=== PATIENT | male | born 1950 | race Caucasian/White ===

== ENCOUNTER 2022-04-24 09:28 | Emergency (ER) | payer MEDICARE, OTHER, SELFPAY ==
[2022-04-24] VITALS (7 sets, daily range): BP systolic 114–124; BP diastolic 69–79; PULSE 54–67; RESP 13–18; TEMP 36.5; O2SAT 97–100
--- NOTE | ~2022-04-24 | XR_ITS ---
EXAMINATION: XR chest 2V DATE: 04/24/2022 10:02 INDICATION: Presyncope. TECHNIQUE: Frontal and lateral views of the chest were obtained. COMPARISON: Chest 2 views 05/15/2016, chest CT 01/18/2018 FINDINGS: The chest demonstrates clear lungs without pneumonia, pleural effusion, or pneumothorax. Th e heart size is normal. IMPRESSION: 1. No acute cardiopulmonary disease. Reviewed, dictated and finalized at location B.
--- NOTE | ~2022-04-24 | CT_ITS ---
EXAMINATION: CTA chest PE abdomen pel DATE: 04/24/2022 12:34 INDICATION: Pleuritic chest pain. Presyncope. Diaphoresis. Decreased responsiveness. TECHNIQUE: Computed tomography angiography (CTA) of the chest was performed with 100 mL Omnipaque-350 intravenous contrast timed to evaluate the pulmonary arteries. Coronal maximum intensity projection 3D-reconstructions were created by the technologist. Computed tomography (CT) of the abdomen and pelv is was performed with intravenous contrast. Automated exposure control and iterative reconstruction t echnique were employed. The dose-length product was 405.53 mGy-cm. COMPARISON: Chest CT 01/18/2018 FINDINGS: CTA chest: There is mild atelectasis bilaterally. No pleural effusion. The heart size is normal. Ther e are coronary artery calcifications. No pericardial effusion. There is no pulmonary embolus. The rig ht measures 3.7 cm of the sinuses of Valsalva, 2.7 cm at the sinotubular junction, 4.0 cm in the mid ascending aorta, 3.0 cm at the aortic isthmus, and 4.0 cm in proximal descending aorta. There is mild aortic atherosclerosis. There is mild thoracic spondylosis. CT abdomen and pelvis: There is an 8 mm cyst in the liver. The gallbladder, spleen, pancreas, adrenal glands, and kidneys are normal. The prostate is mildly enlarged. There are no dilated loops of bowel . There is diverticulosis of the colon without evidence of diverticulitis. There is a large volume of stool in the colon. The appendix is not visualized. There are no pathologically enlarged lymph nodes . There is no free intraperitoneal fluid. There is mild lumbar spondylosis. IMPRESSION: 1. No pulmonary embolus. 2. Ectasia of thoracic aorta measuring 4.0 cm. Reviewed, dictated and finalized at location B.
--- NOTE | 2022-04-24 09:40 | ECG_ITS ---
Measurements Intervals [place] Rate: 56 P: 51 HI: 155 QRS: 35 QRSD: 101 T: 60 QT: 405 QTc: 393 Interpretive Statements SINUS BRADYCARDIA POSSIBLE RIGHT VENTRICULAR CONDUCTION DELAY [RSR (QR) IN V1/V2] SEPTAL MYOCARDIAL INFARCTION , OF INDETERMINATE AGE [40+ ms Q WAVE IN V1/V2] NO PREVIOUS ECG AVAILABLE FOR COMPARISON Electronically Signed On 04-24-2022 13:58:09 CDT by Johnny Chew M.D.
[2022-04-24 10:20] LABS: Basophils Absolute Auto 0.1 K/mm3 (0.0-0.1); Basophils Percent Auto 0.6 % (0.2-1.2); Eosinophils Absolute Auto 0.1 K/mm3 (0-0.3); Hematocrit 38.3 % (42.0-52.0); Hemoglobin 12.8 g/dL (14.0-18.0); Immature Granulocyte Absolute 0.05 K/mm3 (0.00-0.031); Immature Granulocyte Percent A 0.5 % (0-0.5); Lymphocytes Percent Auto 17.5 % (18.3-44.2); Mean Corpuscular HGB Conc 33.4 g/dl (32-36); Mean Corpuscular Hemoglobin 31.1 pg (26-34); Mean Corpuscular Volume 93.2 fl (80-100); Mean Platelet Volume 9.4 fl (7.4-10.4); Monocytes Absolute Auto 0.9 K/mm3 (0.1-0.6); Monocytes Percent Auto 8.3 % (2.6-8.5); Neutrophils Absolute Auto 7.4 K/mm3 (1.3-6.7); Neutrophils Percent Auto 72.1 % (45.5-73.1); Platelet Count Result 178 k/mm3 (150-375); Red Blood Count 4.11 M/mm3 (4.6-6.20); Red Cell Distribution Width 12.6 % (11.5-14.5); White Blood Count 10.3 K/mm3 (4.5-10.0)
[2022-04-24 10:28] LABS: Add Urine Microscopic? YES; Appearance Urine Cloudy (Clear); Bacteria Urine Trace /hpf; Bilirubin Urine Negative (Negative); Blood Urine 1+ (Negative); Color Urine Yellow (Yellow); Glucose Urine UA Negative (Negative); Ketones Urine Negative (Negative); Leukocyte Esterase Ur 2+ LEU/UL (Negative); Mucus Urine Rare /lpf; Nitrate Urine Negative (Negative); Protein Urine Negative (Negative); Specific Grav Ur 1.011 (1.001-1.035); Urobilinogen Urine Negative mg/dL (<2.0); WBC Urine 31-50 /hpf
[2022-04-24 10:30] LABS: Alanine Aminotransferase 26 U/L (6-50); Albumin Level 4.3 g/dL (3.5-5.1); Alkaline Phosphatase 50 U/L (38-126); Anion Gap 6 mmol/L (8-16); Aspartate Amino Transferase 31 U/L (17-59); Bilirubin,Total 0.6 mg/dL (0.2-1.3); Blood Urea Nitrogen 23 mg/dL (9-20); Calcium 9.5 mg/dL (8.4-10.2); Carbon Dioxide 30 mmol/L (22-30); Chloride 97 mmol/L (98-107); Estimated CRCL calculation 64 ml/min; Estimated Glomerular Filt Rate > 60; Glucose 120 mg/dL (65-110); Potassium 4.7 mmol/L (3.4-5.0); Sodium 133 mmol/L (137-145)
[2022-04-24 10:33] LABS: INR 1.1; Prothrombin Time 13.3 Seconds (11.1-14.7)
[2022-04-24 10:34] LABS: Partial Thromboplastin Time 23.9 SECONDS (22.3-36.8)
[2022-04-24 10:42] LABS: Troponin I 0.014 ng/mL (0.000-0.034)
--- NOTE | 2022-04-24 10:45 | ED.GENADULT ---
HPI - General Adult General Chief complaint: Unspecified Stated complaint: episode of lethargy Time Seen by Provider: 04/24/22 09:48 Source: patient Mode of arrival: ambulatory Limitations: no limitations History of Present Illness HPI narrative: This is a 71 year old male that presents to the ER for a pre-syncopal episode today. Reports he was at his pulmonologists office this morning. He was taking a deep breath and started to feel very lightheaded. Reports he almost passed out. Reports he has been having trouble with exertional dyspnea for some time which is why he was seeing a stave block splitter. He has had a normal stress test this year. He also reports he had an injury a couple of weeks ago. He fell through his deck and landed on his left side. He was having some left sided rib pain after, but was not evaluated. He did not hit his head or lose consciousness. Denies chest pain or shortness of breath currently. Related Data Allergies Allergy/AdvReac Type Severity Reaction Status Date / Time No Known Allergies Allergy Verified 04/24/22 11:06 Review of Systems Review of Systems: CONSTITUTIONAL: Denies fever CARDIOVASCULAR: Denies chest pain, or edema. RESPIRATORY: Reports exertional dyspnea. GENITOURINARY: Denies dysuria NEUROLOGIC: Denies numbness, or weakness. All systems reviewed & are unremarkable except as noted in HPI and below PMFSH Past Medical History Medical History (Updated 04/24/22 @ 13:02 by Drea Robles PA-C) History of allergic rhinitis History of prostate cancer History of testicular cancer Surgical History Surgical History (Updated 04/24/22 @ 10:49 by Drea Robles PA-C) History of orchiectomy Social History Social History (Updated 04/24/22 @ 10:49 by Drea Robles PA-C) Smoking status: Former smoker Alcohol intake: current Substance use: never Exam Narrative: GENERAL: Well-appearing, well-nourished, and in no acute distress. HEAD: Normocephalic, atraumatic. EYES: EOMI. CHEST: Clear to auscultation. No respiratory distress. No wheezes rales or rhonchi HEART: Regular rate and rhythm. No murmur heard. Normal peripheral pulses. ABDOMEN: Soft, nontender, nondistended, normal active bowel sounds. EXTREMITIES: Normal range of motion. No edema. SKIN: Warm, dry, no rash. NEURO: No focal deficits. Alert and oriented x3. PSYCH: Normal mood and affect Course Vital Signs Vital signs: Vital Signs Temperature 97.7 F 04/24/22 09:30 Pulse Rate 54 L 04/24/22 09:30 Respiratory Rate 14 04/24/22 09:30 Blood Pressure 114/69 04/24/22 09:30 Pulse Oximetry 97 04/24/22 09:30 Oxygen Delivery Room Air 04/24/22 09:30 Temperature 97.7 F 04/24/22 09:30 Pulse Rate 56 L 04/24/22 09:45 Respiratory Rate 16 04/24/22 09:45 Blood Pressure 120/71 04/24/22 09:45 Pulse Oximetry 99 04/24/22 09:45 Oxygen Delivery Room Air 04/24/22 09:30 Medical Decision Making MDM Narrative Medical decision making narrative: Patient presents to the emergency department after a near syncopal event today at his stave block splitter office. He is afebrile and nontoxic-appearing. His vitals are stable. CBC with mild leukocytosis to 12.3. Also shows normocytic anemia with hemoglobin of 12.8. Metabolic panel without concerning findings. UA with evidence of infection. EKG without concerning changes and baseline troponin is negative. Chest x-ray without acute cardiopulmonary abnormality. CTA of the chest with abdomen/pelvis was obtained due to patient having ongoing exertional dyspnea, near syncopal event today with history of prostate cancer. This was without evidence of PE. No acute intra-abdominal abnormality. He does have ectasia of the thoracic aorta measuring 4 cm which patient is aware of. Patient and family updated on case findings. Will be started on oral antibiotics for urinary tract infection and was instructed to have close follow-up with his primary doctor. He was given warni
[2022-04-24 11:27] LABS: D Dimer 0.41 ug/mL (<0.48)
== END 2022-04-24 13:30 | disposition home or self-care (01) ==
PROVIDERS: Physician Assistant; Emergency Provider Emergency Medicine; PCP Nurse Practitioner Adult Health
DX: R55 Syncope and collapse (principal); N39.0 Urinary tract infection, site not specified; Z85.46 Personal history of malignant neoplasm of prostate; Z85.47 Personal history of malignant neoplasm of testis; Z87.891 Personal history of nicotine dependence; Z90.79 Acquired absence of other genital organ(s); I77.810 Thoracic aortic ectasia
CPT/HCPCS: 36415; 71046; 71275; 74177; 80053; 81001; 84484; 85025; 85380; 85610; 85730; 87086; 93005; 99284; Q9967

== ENCOUNTER 2022-05-10 09:57 | Outpatient (CLI) | payer MEDICARE, OTHER, SELFPAY ==
--- NOTE | 2022-05-11 09:32 | WPDPFTINT ---
PFT Procedure Performed PFT Procedure Performed Spirometry with Pre/Post Bronchodilator Plethysmography (Lung Vol) Diffusing Cap (DLCO) Flow Vol Loop PFT Interpretation Lung volumes were measured with the body plethysmography method. Lung volumes are unremarkable. Spirometry showed normal expiratory flow rates and a normal FEV1 to FVC ratio of 72%. Following administration of a bronchodilator there was no significant increase in expiratory flow rates. Lung diffusion capacity is within the normal range at 88% predicted. The flow volume loop is unremarkable. Impression: Spirometry, lung volumes, and lung diffusion capacity all within the normal range.
== END 2022-05-10 09:58 | disposition home or self-care (01) ==
LOC: ANHPFT 09:59
PROVIDERS: PCP Nurse Practitioner Adult Health; Visit Provider Nurse Practitioner
DX: J44.9 Chronic obstructive pulmonary disease, unspecified (principal)
CPT/HCPCS: 94060; 94726; 94729